=== PATIENT | male | born 1950 | race Caucasian/White ===

== ENCOUNTER 2022-06-11 15:31 | Emergency (ER) | payer MEDICARE, OTHER ==
[~2022-06-11] VITALS: Ht 190.5 cm; Wt 81.8 kg
[2022-06-11 15:49] VITALS: BP 155/75
[2022-06-11 16:37] LABS: URINE BILIRUBIN - DIPSTICK NEGATIVE (NEGATIVE); URINE BLOOD DIPSTICK SMALL (NEGATIVE); URINE CLARITY CLEAR; URINE COLOR YELLOW; URINE GLUCOSE - DIPSTICK NEGATIVE (NEGATIVE); URINE KETONE NEGATIVE (NEGATIVE); URINE LEUK ESTERASE NEGATIVE (Negative); URINE NITRITE - DIPSTICK NEGATIVE (Negative); URINE PH 6.5 (4.5-8.0); URINE PROTEIN - DIPSTICK NEGATIVE (NEG-TRACE); URINE UROBILINOGEN - DIPSTICK 0.2 E.U./dL (0.2)
[2022-06-11 16:45] LABS: URINE WBC 0-2 WBC/hpf (0-5)
[2022-06-11] MEDS ORDERED: TAMSULOSIN0.4 MG PO (16:48)
[2022-06-11 18:01] VITALS: BP 155/75
== END 2022-06-11 18:02 | disposition home or self-care (01) ==
LOC: ED 15:31
PROVIDERS: Family Medicine
DX: R33.9 Retention of urine, unspecified (principal)

== ENCOUNTER 2022-08-11 07:33 | Day surgery (SDC) | payer MEDICARE, OTHER ==
[~2022-08-11] VITALS: Ht 190.5 cm; Wt 79.4 kg
[~2022-08-11 07:33] MED LIST: MULTI COMPLT PO; TAMSULOSIN0.4 MG PO
[2022-08-11 11:17] VITALS: BP 128/70
== END 2022-08-11 11:40 | disposition home or self-care (01) ==
LOC: ORM 07:33
PROVIDERS: ATTEND Urology
PROC: 0VB08ZZ Excision of Prostate, Via Natural or Artificial Opening Endoscopic (ICD-10-PCS; principal; 2022-08-11)
DX: N40.1 Benign prostatic hyperplasia with lower urinary tract symptoms (principal); R33.8 Other retention of urine; C61 Malignant neoplasm of prostate; N52.9 Male erectile dysfunction, unspecified; F17.210 Nicotine dependence, cigarettes, uncomplicated
CPT/HCPCS: J0131; J1956